=== PATIENT | male | born 1985 | race Hispanic/Latino ===

== ENCOUNTER 2020-12-02 00:48 | Emergency (ER) | payer SELFPAY ==
[2020-12-02 00:50] VITALS: BP 146/95; PULSE 86; RESP 16; TEMP 36.8; O2SAT 99; BMI 28.0
--- NOTE | 2020-12-02 01:53 | RAD_ITS ---
STUDY: X-RAY - LEFT HAND, ATTENTION INDEX FINGER REASON FOR EXAM: Male, 34 years old. injury TECHNIQUE: 3 view(s) of the finger were obtained. COMPARISON: None. FINDINGS: Normal metacarpal head. Normal metacarpophalangeal joint. Normal proximal phalanx. Normal middle phalanx. Irregularity at the tip of the distal phalanx, cannot exclude partial amputation of the tuft. Normal proximal interphalangeal joint. Normal distal interphalangeal joint. Irregularity of the soft tissues with lucency at the tip of the finger suggestive of laceration or partial amputation. RAD/Finger(s) Min 2 Views IMPRESSION: Findings suggestive of laceration versus partial amputation of the tip of the index finger, cannot exclude partial amputation of the tuft. Remainder of the exam unremarkable. Electronically Signed: Tamara Macias MD at 2:25 EDT , Service support ,
[2020-12-02] MEDS: HYDROcodone Bitartrate/Apap 5/325 Tablet PO (01:59)
[2020-12-02] MEDS: Diphth,Pertuss(Acell),Tet Vac 0.5 ML Vial IM (02:00)
[2020-12-02 02:05] VITALS: RESP 14
[2020-12-02] MEDS: Bupivacaine Mpf 0.5% 30 ML VIAL INFILT (02:11)
[2020-12-02] MEDS: Cephalexin 250 MG Capsule 500 MG PO (03:28)
[2020-12-02] MEDS: Lidocaine 1% (20 ml mdv) 20 ML Vial INFILT (03:29)
[2020-12-02 03:34] VITALS: PULSE 76; RESP 16; O2SAT 98
--- NOTE | 2020-12-02 05:48 | EDS_ITS ---
HPI History of Present Illness Chief Complaint: Upper Extremity Injury Informant: patient Occured/Mechanism Comment: Fingertip caught in door Onset/Context/Timing Onset: Yesterday Current Severity: Moderate Maximum Severity: Moderate Narrative Narrative: Patient presents with left index finger injury. Patient is right- hand dominant. States his left index finger got caught in a door and he has a distal fingertip amputation. He denies any other injury. PFSH PFSH no medical history Home Medications cephalexin 500 mg PO Q6H 10 Days #40 cap 12/02/20 [Rx Last Taken Unknown] Allergy/AdvReac Type Severity Reaction Status Date / Time No Known Allergies Allergy Verified 12/02/20 00:49 Social History Smoking Status: Never smoker ROS ROS ED Constitutional Constitutional ED: Denies chills or fever(s) Eyes Eyes: Denies change in vision ENT ENT ED: Denies sore throat Cardiovascular Cardiovascular: Denies chest pain Respiratory/Chest Respiratory/Chest: Denies cough or dyspnea Gastrointestinal Gastrointestinal: Denies abdominal pain, diarrhea, nausea or vomiting Genitourinary Genitourinary ED: Denies dysuria Musculoskeletal Musculoskeletal: Reports other Details: Left hand pain ; Denies back pain Integumentary Denies rash Neurologic Neurologic: Denies headache(s) or weakness Psychiatric Psychiatric: Denies anxiety or depression Endocrine Endocrinology: Denies polydipsia or polyuria Allergic/Immunologic Allergic/Immunologic ED: Denies urticaria EXAM Physical Exam Const Vital Signs: 12/02/20 00:50 12/02/20 02:05 12/02/20 03:34 Temperature 98.3 F Temperature Source Temporal Pulse Rate 86 76 Respiratory Rate 16 14 16 Blood Pressure 146/95 H Blood Pressure Mean 112 Pulse Ox 99 98 Oxygen Delivery Method Room Air Positive well nourished and well developed General Appearance ED: well developed HEENT Reports normocephalic and head/scalp atraumatic Eyes PERRL and EOMs intact bilaterally Neck supple Chest Wall inspection of chest normal and palpation of chest normal Resp normal respiratory effort and clear to auscultation bilaterally Cardio regular rate and regular rhythm GI normal to inspection, nondistended, normoactive bowel sounds Palpation: soft Extremity Extremity Narrative: Skin avulsion over the distal tip of the left index finger. Nail is intact. Full range of motion of the digit. Normal sensation. Neuro oriented x3 and no sensory deficits noted Sensorium / Orientation: alert Motor Exam: strength 5/5 throughout Psych mental status grossly normal Skin no rashes or lesions noted MDM MDM MDM Narrative Medical decision making narrative: Digital block of the left index finger was performed using a 50-50 mix of lidocaine and Marcaine. Left finger x-rays are obtained. Tetanus update is provided. Patient is given p.o. [place] for pain control. Radiography Diagnostic Testing: Radiology Impression Finger X-Ray 12/02/20 01:53 IMPRESSION: Findings suggestive of laceration versus partial amputation of the tip of the index finger, cannot exclude partial amputation of the tuft. Remainder of the exam unremarkable. Electronically Signed: Tamara Macias MD at 2:25 EDT , Service support , Treatment and Re-Evaluation Comments:: Following digital block wound is cleansed. X-rayed does appear to show a small piece of distal bone avulsed. On exam patient has tissue covering the bone and. Skin avulsion involves the distal 1/2 cm of the digit. Skin itself cannot be pulled over the tissue and will be allowed to heal by secondary intention. Patient is in agreement with this plan. After thoroughly cleansing the area bacitracin ointment followed by dressing is applied. Patient be treated with Keflex and [place]. He is given referral to the wound center. Discharge Plan Triage Chief Complaint: Upper Extremity Injury ED Provider: Zakia Lauren Dx/Rx/DC Orders Clinical Impression: Avulsion of skin of index finger Instructions: ED Finger Tip Amputation Open ... Prescriptions: New cephalexin 500 mg capsule 500 mg PO Q6H 10 Days Qty: 40 RF: 0 Stand Alone Forms: Work Status Form Primary Care Provider: Care Physician,No Primary Referrals: Care Physician,No Primary [Primary Care Provider] - Activity Restrictions/Additional Instructions: Please follow-up with the wound center for appropriate monitoring of healing. [phone] for an appointment. Disposition Disposition: Home, Self Care Discharge Date/Time: 12/02/20 03:34
== END 2020-12-02 03:34 | disposition home or self-care (01) ==
PROVIDERS: Emergency Provider Emergency Medicine
DX: S62.631B Displaced fracture of distal phalanx of left index finger, initial encounter for open fracture (principal); Z23 Encounter for immunization; W23.0XXA Caught, crushed, jammed, or pinched between moving objects, initial encounter; Y93.9 Activity, unspecified; Y92.9 Unspecified place or not applicable; Y99.9 Unspecified external cause status
CPT/HCPCS: 73140; 90471; 90715; 99285